=== PATIENT | female | born 1985 | race African-American/Black ===

== ENCOUNTER 2018-03-24 13:45 | Emergency (ER) | payer OTHER ==
[~2018-03-24] VITALS: Ht 167.6 cm; Wt 61.2 kg
[~2018-03-24 13:45] MED LIST: ARIPIPRAZOLE5 MG PO; BACTRIM DS TAB1 EACH PO; CARAFATE1 GM/10 ML PO; CHLORDIAZEPOXI1 EAC1 PO; COLACE100 MG PO; DOXYCYCLINE 10100 MG PO; ENOXAPARIN40 MG/0.1 SUBQ; HYDROCODONE-AC474 ML PO; K-DUR10 MEQ PO; LUTERA1 EACH PO; PANTOPRAZOLE SO40 M1 PO; PROMETHAZINE12.5 M1 PO; PROTONIX40 M1 PO; REGLAN 10 MG TA10 MG PO; REMERON15 MG PO; TRANSDERM-SCO1 PATC1 TD; TRAZODONE HCL50 MG; VALIUM5 MG PO; WELLBUTRIN SR100 MG PO; ZANTAC 150MG T150 MG PO; ZINC SULFATE 2220 MG PO; ZOFRAN ODT4 MG DISSOLVE
[2018-03-24 14:22] LABS: ABSOLUTE BASOPHILS 0.1 thou/uL (0.0-0.2); ABSOLUTE EOSINOPHILS 0.1 thou/uL (0.0-0.7); ABSOLUTE LYMPHOCYTES 1.5 thou/uL (0.8-5.3); ABSOLUTE MONOCYTES 0.6 thou/uL (0.0-1.2); BASOPHILS 0.7 %; EOSINOPHILS 1.1 %; HEMATOCRIT 42.8 % (37.0-47.0); HEMOGLOBIN 14.3 gm/dL (12.0-15.0); LYMPHOCYTES 20.3 %; MCH 32.5 pg (26.0-34.0); MCHC 33.3 g/dL (28.0-37.0); MCV 97.5 fL (80.0-100.0); MONOCYTES 7.7 %; MPV 10.4 fl. (7.2-11.1); NUCLEATED RBCS 0 /100WBC; PLATELET COUNT* 218 thou/uL (150-400); POLYS 70.2 %; RBC 4.39 mil/uL (4.20-5.00); WBC 7.2 thou/uL (4.0-11.0)
[2018-03-24 14:30] LABS: CALCIUM 9.1 mg/dL (8.5-10.1); CREATININE 0.9 mg/dL (0.6-1.3); POTASSIUM 3.7 mmol/L (3.5-5.1)
[2018-03-24 14:35] LABS: ALBUMIN 3.4 g/dL (3.4-5.0); TOTAL BILIRUBIN 0.4 mg/dL (<0.1-1.0); TOTAL PROTEIN 7.3 g/dL (6.4-8.2)
[2018-03-24 17:03] LABS: URINE BILIRUBIN NEGATIVE (Negative); URINE BLOOD NEGATIVE (Negative); URINE CLARITY CLEAR; URINE COLOR YELLOW; URINE GLUCOSE-RANDOM NEGATIVE (Negative); URINE KETONES NEGATIVE (Negative); URINE LEUKOCYTES 1+ (Negative); URINE NITRITE NEGATIVE (Negative); URINE PROTEIN NEGATIVE (Negative); URINE SPECIFIC GRAVITY >= 1.030 (1.005-1.030); URINE UROBILINOGEN 0.2 E.U./dl (0.2-1.0)
[2018-03-24 17:10] LABS: AMP/METHAMP Negative (Negative); BARBITURATES Negative (Negative); BENZODIAZEPINES Negative (Negative); COCAINE Negative (Negative); METHADONE Negative (Negative); OPIATES Negative (Negative); PCP Negative (Negative); THC Negative (Negative)
[2018-03-24 17:14] LABS: BACTERIA 1-9 Few /HPF (None Seen); CASTS None Seen /LPF (None Seen); CRYSTALS None Seen /LPF (None Seen); SQUAMOUS 4-10 Moderate /LPF (0-3); URINE RBC None Seen /HPF (0-2); URINE WBC None Seen /HPF (0-5)
[2018-03-24 17:55] VITALS: BP 105/64
== END 2018-03-24 17:58 | disposition home or self-care (01) ==
LOC: M.ERS 13:45
PROVIDERS: Nurse Practitioner Family
DX: S09.90XA Unspecified injury of head, initial encounter (principal); R56.9 Unspecified convulsions; K21.9 Gastro-esophageal reflux disease without esophagitis; F32.9 Major depressive disorder, single episode, unspecified; F41.9 Anxiety disorder, unspecified; G47.00 Insomnia, unspecified; I95.1 Orthostatic hypotension; W22.8XXA Striking against or struck by other objects, initial encounter; Y92.89 Other specified places as the place of occurrence of the external cause; Y93.89 Activity, other specified; Y99.8 Other external cause status

== ENCOUNTER 2018-06-01 02:30 | Emergency (ER) | payer OTHER ==
[~2018-06-01] VITALS: Ht 170.2 cm; Wt 49.9 kg
[2018-06-01 02:52] LABS: URINE BILIRUBIN NEGATIVE (Negative); URINE BLOOD TRACE (Negative); URINE CLARITY CLEAR; URINE COLOR YELLOW; URINE GLUCOSE-RANDOM NEGATIVE (Negative); URINE KETONES TRACE (Negative); URINE LEUKOCYTES-REFLEX NEGATIVE (Negative); URINE NITRITE-REFLEX NEGATIVE (Negative); URINE PROTEIN NEGATIVE (Negative); URINE SPECIFIC GRAVITY >= 1.030 (1.005-1.030)
[2018-06-01] MEDS ORDERED: NORCO 7.5-3251 EACH PO (03:40)
[2018-06-01] MEDS ORDERED: DIFLUCAN150 MG PO (03:40)
[2018-06-01] MEDS ORDERED: ACYCLOVIR 400400 MG PO (03:40)
[2018-06-01 03:45] VITALS: BP 100/62
== END 2018-06-01 03:46 | disposition home or self-care (01) ==
LOC: M.ERS 02:30
PROVIDERS: Emergency Medicine
DX: B00.9 Herpesviral infection, unspecified (principal); K21.9 Gastro-esophageal reflux disease without esophagitis; F32.9 Major depressive disorder, single episode, unspecified; F41.9 Anxiety disorder, unspecified; G47.00 Insomnia, unspecified; I95.1 Orthostatic hypotension